=== PATIENT | male | born 1985 | race Two or more races ===

== ENCOUNTER 2023-08-10 09:50 | Emergency (ER) | payer MEDICAID, OTHER ==
[~2023-08-10] VITALS: Ht 180.3 cm; Wt 86.8 kg
[2023-08-10 10:36] VITALS: BP 158/90; PULSE 60; RESP 16; TEMP 97.6; O2SAT 97
[2023-08-10] MEDS ORDERED: NAPR-746 PO (10:50)
[2023-08-10] MEDS ORDERED: AUG875T PO (10:50)
== END 2023-08-10 11:00 | disposition home or self-care (01) ==
LOC: ER 09:50
DX: Z48.00 Encounter for change or removal of nonsurgical wound dressing (principal); S80.812A Abrasion, left lower leg, initial encounter; S81.832A Puncture wound without foreign body, left lower leg, initial encounter; W55.03XA Scratched by cat, initial encounter; Y93.89 Activity, other specified; Y92.009 Unspecified place in unspecified non-institutional (private) residence as the place of occurrence of the external cause; Y99.8 Other external cause status